=== PATIENT | female | born 1960 | race Caucasian/White ===

== ENCOUNTER 2020-11-25 04:13 | Emergency (ER) | payer OTHER ==
[~2020-11-25] VITALS: Ht 172.7 cm; Wt 82.6 kg
[~2020-11-25 04:13] MED LIST: DOXYCYCLINE HY100 MG PO; DULERA 100 MCG/13 GM INH; ESTRING1 EACH VAGINAL; PERCOCET 7.5-31 EACH PO; ZAFIRLUKAST20 MG PO; ZYRTEC-D TABLE1 EACH PO
[2020-11-25] MEDS ORDERED: FLOVENT HFA12 GM INH (04:47)
[2020-11-25] MEDS ORDERED: MONTELUKAST SOD10 MG PO (04:48)
[2020-11-25] MEDS ORDERED: XIIDRA1 EACH OU (04:49)
[2020-11-25] MEDS ORDERED: LEVOTHYROXINE25 MCG PO (04:50)
[2020-11-25] MEDS ORDERED: PROAIR HFA8.5 GM INH (04:50)
[2020-11-25] MEDS ORDERED: DICLOFENAC SODI75 MG PO (06:32)
[2020-11-25] MEDS ORDERED: HYDROCODON-ACE1 EA10 PO (06:32)
--- NOTE | 2020-11-25 15:20 | EKG ---
[facility] [address] [place], [place] [address] Signed Sinus rhythm with sinus arrhythmia with occasional premature ventricular complexes Otherwise normal ECG No previous ECGs available Confirmed by INES MANCIA MD ([id number]) on 11/25/2020 3:20:24 PM Electronically Signed By: INES MANCIA MD 11/25/20 1520 PATIENT NAME: DIO MANJARREZ JANET Electrocardiogram DATE OF : 58 PHYSICIAN: INES MANCIA MD REPORT #: [id number] REPORT IS CONFIDENTIAL AND NOT TO BE RELEASED WITHOUT AUTHORIZATION
== END 2020-11-25 06:48 | disposition home or self-care (01) ==
LOC: ED 04:13
DX: R07.89 Other chest pain (principal); M25.512 Pain in left shoulder; M25.562 Pain in left knee; M25.561 Pain in right knee; M25.522 Pain in left elbow; M25.521 Pain in right elbow; M25.532 Pain in left wrist; M25.531 Pain in right wrist; J45.909 Unspecified asthma, uncomplicated; E03.9 Hypothyroidism, unspecified; Z79.899 Other long term (current) drug therapy
CPT/HCPCS: 71045; 80053; 81001; 84484; 85025; 85651; 93005; 93010; 96374; 99284-25; J1885; J7030

== ENCOUNTER 2020-11-26 21:58 | Emergency (ER) | payer OTHER ==
[~2020-11-26] VITALS: Ht 172.7 cm; Wt 82.6 kg
[~2020-11-26 21:58] MED LIST changes: +DICLOFENAC SODI75 MG PO; +FLOVENT HFA12 GM INH; +HYDROCODON-ACE1 EA10 PO; +LEVOTHYROXINE25 MCG PO; +MONTELUKAST SOD10 MG PO; +PROAIR HFA8.5 GM INH; +XIIDRA1 EACH OU
--- OUTSIDE RECORDS SUMMARY | 2020-11-26 22:00 | XMS ---
PreManage Notification: DIO MANJARREZ Security Gastroenterologist Events No recent Security Events currently on file CRITERIA MET - [facility] - 2 Visits in 30 Days CARE PROVIDERS There are no care providers on record at this time. Carol has no Care Guidelines for this patient. [facility] NOTE: Visits indicate total known visits. ED/C VISIT TRACKING (12 MO.) 11/26/2020 21:[address] [facility] TYPE: Emergency COMPLAINT: - ALL OVER JOINT PAIN 11/25/2020 04:14 [facility] TYPE: Emergency COMPLAINT: - WEAKNESS,COLD SYMPTOMS INPATIENT VISIT TRACKING (12 MO.) No inpatient visits to display in this time frame [email or web address]
== END 2020-11-26 22:33 | disposition home or self-care (01) ==
LOC: ED 21:58
DX: M25.572 Pain in left ankle and joints of left foot (principal); M25.571 Pain in right ankle and joints of right foot; M25.562 Pain in left knee; M25.561 Pain in right knee; M25.522 Pain in left elbow; M25.521 Pain in right elbow; M25.532 Pain in left wrist; M25.531 Pain in right wrist; J45.909 Unspecified asthma, uncomplicated; E03.9 Hypothyroidism, unspecified; Z79.899 Other long term (current) drug therapy
CPT/HCPCS: 99282